=== PATIENT | male | born 2000 | race Caucasian/White ===

== ENCOUNTER 2018-02-06 07:09 | Emergency (ER) | payer SELFPAY ==
[~2018-02-06] VITALS: Ht 170.2 cm; Wt 78.5 kg
[2018-02-06 07:15] VITALS: Ht 170.2 cm; Wt 78.5 kg
[2018-02-06 09:10] VITALS: BP 125/71
== END 2018-02-06 09:10 | disposition home or self-care (01) ==
LOC: ED 07:09
DX: J36 Peritonsillar abscess (principal)
CPT/HCPCS: J0696